=== PATIENT | male | born 1940 | race Caucasian/White ===

== ENCOUNTER 2023-05-03 06:05 | Inpatient (IN) | payer OTHER ==
[2023-05-01 15:25] VITALS: BP 133/78; PULSE 80; RESP 12; TEMP 97.3; O2SAT 97
[~2023-05-03] VITALS: Ht 172.7 cm; Wt 71.0 kg
[2023-05-03] VITALS (19 sets, daily range): BP systolic 107–147; BP diastolic 38–87; PULSE 65–94; RESP 11–19; TEMP 97.3–98; O2SAT 97–100
[~2023-05-03 06:05] MED LIST: ASCO500T11 PO; ASPI1TAB20 PO; CHOL20004 PO; CILO100T PO; CLOP75TA28 PO; FOLI-119 PO; IRONCAP19 OR; KETO2CRE4 EX; LEFL20TA PO; METF-370 PO; METH2.5T PO; METO25TA93 PO; MULT-1018 OR; MULT-688 PO; OMEGCAP28 OR; SIMV40TA18 PO; ZOLP10TA6 PO; [UNRECOGNIZED DRUG - CODE] PO
[2023-05-03] MEDS ORDERED: LIDOCAINE 1% (LOCAL ANESTH.) PF 5ml SDV ONE (06:43)
[2023-05-03] MEDS ORDERED: LIDOCAINE 1% HCL (LOCAL ANESTH.) INJ 20ML MDV ONE (06:44)
[2023-05-03] MEDS ORDERED: BUPIVACAINE 0.5% P/F INJ 10 ML VIAL ONE (06:44)
[2023-05-03] MEDS: HEPARIN SODIUM (PORCINE) 5000 UNITS/ML 1ML VIAL ONE ×2 (06:47→13:00)
[2023-05-03] MEDS ORDERED: LIDOCAINE 2%HCL (LOCAL ANESTH.) INJ 10ml MDV ONE (07:17)
[2023-05-03] MEDS ORDERED: ROCURONIUM 10MG/ML 10ML VIAL IV ONE (07:17)
[2023-05-03] MEDS ORDERED: GELATIN 1 SPONGE SIZE 100 TOP ONE (07:53)
[2023-05-03] MEDS ORDERED: THROMBIN (BOVINE) 5000 UNIT SOL VIAL ONE (07:53)
[2023-05-03] MEDS ORDERED: LIDOCAINE 2% (LOCAL ANESTH.) PF 5ml SDV ONE (07:54)
[2023-05-03] MEDS ORDERED: DexAMETHasone SOD PHOS 10MG/1ML VIAL INJ ONE (07:54)
[2023-05-03] MEDS ORDERED: ONDANSETRON HCL 4 MG/2 ML VIAL ONE (07:54)
[2023-05-03] MEDS ORDERED: GLYCOPYRROLATE 0.2 MG/ML 1ML VIAL ONE (07:54)
[2023-05-03] MEDS ORDERED: PROPOFOL 10 MG/ML 20 ML IV ONE (07:54)
[2023-05-03] MEDS ORDERED: fentaNYL CITRATE 100 MCG/2 ML VL ONE (07:55)
[2023-05-03] MEDS ORDERED: SUGAMMADEX 200mg/2ml Vial (100MG/ML) IV ONE (07:55)
[2023-05-03] MEDS ORDERED: SODIUM CHLORIDE LOCK 20 ML ONE (08:17)
[2023-05-03] MEDS ORDERED: PHENYLEPHRINE HCL 10 MG/ML VL ONE (08:17)
[2023-05-03] MEDS ORDERED: PROTAMINE SULFATE 10 MG/ML 5ML VIAL IV ONE (08:17)
[2023-05-03] MEDS ORDERED: ceFAZolin 1GM/50ML 100 ML IV ONE (08:20)
[2023-05-03] MEDS ORDERED: ePHEDrine SULFATE 50 MG/ML AMP ONE (08:37)
[2023-05-03] MEDS ORDERED: METOPROLOL TARTRATE 1MG/1ML-5ML VIAL IV ONE (09:17)
[2023-05-03] MEDS ORDERED: FLUMAZENIL 0.1 MG/ML INJ 10ML MDV IV PRN (10:45)
[2023-05-03] MEDS ORDERED: HYDROmorphone HCL 2 MG/ML VL/or syr IV PRN (10:45)
[2023-05-03] MEDS ORDERED: ePHEDrine SULFATE 50 MG/ML AMP IV PRN (10:45)
[2023-05-03] MEDS ORDERED: LABETALOL HCL 5 MG/ML 4ML SYRINGE IV PRN (10:45)
[2023-05-03] MEDS ORDERED: NALOXONE HCL 0.4 MG/ML VIAL IV PRN (10:45)
[2023-05-03] MEDS ORDERED: NITROGLYCERIN 0.4 MG SL TAB SL PRN (10:45)
[2023-05-03] MEDS ORDERED: ONDANSETRON HCL 4 MG/2 ML VIAL IV PRN (10:45)
[2023-05-03] MEDS ORDERED: MORPHINE SULFATE INJ 2 MG/ml SYRG IV PRN ×2 (10:45→16:15)
[2023-05-03] MEDS ORDERED: OXYCODONE W/ ACETAMINOPHEN 5/325MG TABLET PO PRN (10:45)
[2023-05-03] MEDS ORDERED: hydrALAZINE HCL 20 MG/ML VL IV PRN (10:45)
[2023-05-03] MEDS ORDERED: fentaNYL CITRATE 100 MCG/2 ML VL IV PRN (10:45)
[2023-05-03] MEDS ORDERED: DEXTROSE (50%) 50ML SYRG IV PRN (18:00)
[2023-05-03] MEDS: InsuLIN REG 1unit/0.01ml Soln (100units/ml) SC SCH (18:37)
[2023-05-03] MEDS: ACCU-CHEK COMFORT CURVE STRIP VI SCH (22:11)
[2023-05-04] VITALS (18 sets, daily range): BP systolic 104–148; BP diastolic 44–95; PULSE 60–89; RESP 10–23; TEMP 97.5–98.2; O2SAT 94–100
[2023-05-04] MEDS ORDERED: ONDANSETRON HCL 4 MG/2 ML VIAL IV PRN (00:15)
[2023-05-04] MEDS: ACETAMINOPHEN 325 MG TAB PO PRN ×2 (00:40→08:13)
[2023-05-04 05:00] LABS: Basophils # (auto) 0 10 ^3/uL (0-0.2); Basophils % (auto) 0.4 % (0.0-2.0); Chloride 109 mmol/L (98-107); Eosinophils # (auto) 0 10 ^3/uL (0-0.8); Eosinophils % (auto) 0.3 % (0.0-7.0); Hematocrit 30.8 % (41.0-53.0); Hemoglobin 10.1 g/dL (13.5-17.5); Lymphocytes # (auto) 1.3 10 ^3/uL (0.4-5.4); Mean Corpuscular Hemoglobin 30.9 pg (28.0-32.0); Mean Corpuscular Hgb Conc. 32.8 g/dL (32.0-36.0); Mean Corpuscular Volume 94.5 fL (80.0-100.0); Monocytes # (auto) 0.8 10 ^3/uL (0-1.3); Monocytes % (auto) 10.5 % (0.0-12.0); Neutrophils # (auto) 5.4 10 ^3/uL (1.6-8.6); Neutrophils % (auto) 71.8 % (37.0-80.0); Potassium 4.1 mmol/L (3.5-5.1); Red Blood Cells 3.26 10^6/uL (4.5-5.90); Red Cell Distribution Width 15.3 % (11.8-14.3); Sodium 140 mmol/L (136-145); White Blood Cell 7.5 10^3/uL (4.4-10.8)
[2023-05-04 05:01] LABS: Anion Gap 8 (5-15); Carbon Dioxide 23 mmol/L (20-30)
[2023-05-04 05:02] LABS: Calcium 8.4 mg/dL (8.7-10.4)
[2023-05-04 05:06] LABS: BUN/Creatinine Ratio 13.7 (10.0-20.0); Blood Urea Nitrogen 10 mg/dL (9-23); Glucose 104 mg/dL (74-106)
[2023-05-04 05:07] LABS: Magnesium 1.7 mg/dL (1.6-2.6)
[2023-05-04] MEDS: InsuLIN REG 1unit/0.01ml Soln (100units/ml) SC SCH ×2 (07:00→11:15)
[2023-05-04] MEDS: ACCU-CHEK COMFORT CURVE STRIP VI SCH ×2 (07:03→11:15)
== END 2023-05-04 16:15 | disposition home or self-care (01) | DRG 39 ==
LOC: SUR 06:05 → TELE 10:42 → ICU CENTRL 14:57
PROVIDERS: ADMIT Surgery Vascular Surgery; ATTEND Surgery Vascular Surgery
PROC: 03UL0KZ Supplement Left Internal Carotid Artery with Nonautologous Tissue Substitute, Open Approach (ICD-10-PCS; 2023-05-03)
PROC: 03CL0ZZ Extirpation of Matter from Left Internal Carotid Artery, Open Approach (ICD-10-PCS; principal; 2023-05-03 08:24)
DX: I65.22 Occlusion and stenosis of left carotid artery (principal); E11.9 Type 2 diabetes mellitus without complications; E78.5 Hyperlipidemia, unspecified; H54.61 Unqualified visual loss, right eye, normal vision left eye; I10 Essential (primary) hypertension; I69.398 Other sequelae of cerebral infarction; I16.0 Hypertensive urgency
CPT/HCPCS: 36415; 80048; 82962; 83735; 85025; 86850; 86900; 86901; 87081; G0378; J0690; J1100; J2001; J2405; J2704; J3490

== ENCOUNTER 2024-05-02 21:34 | Inpatient (IN) | payer OTHER ==
[~2024-05-02] VITALS: Ht 175.3 cm; Wt 72.6 kg
[~2024-05-02 21:34] MED LIST changes: -ASCO500T11 PO; -CILO100T PO; +CILO100T3 PO; -IRONCAP19 OR; -MULT-1018 OR
[2024-05-02 23:50] VITALS: BP 130/59; PULSE 92; RESP 18; TEMP 98.3; O2SAT 95
[2024-05-03] VITALS (10 sets, daily range): BP systolic 100–159; BP diastolic 50–66; PULSE 77–96; RESP 18–20; TEMP 98–98.3; O2SAT 86–96
[2024-05-03] MEDS ORDERED: ACETAMINOPHEN 325 MG TAB PO PRN (00:15)
[2024-05-03] MEDS ORDERED: NITROGLYCERIN 0.4 MG SL TAB SL PRN (00:15)
[2024-05-03] MEDS ORDERED: MORPHINE SULFATE INJ 2 MG/ml SYRG IV PRN (00:15)
[2024-05-03] MEDS ORDERED: HYDROcodone-ACET 5/325MG TAB PO PRN (00:15)
[2024-05-03] MEDS ORDERED: ENOXAPARIN SOD 80 MG/0.8ML SYRINGE SC SCH (00:15)
[2024-05-03] MEDS ORDERED: ONDANSETRON HCL 4 MG/2 ML VIAL IV PRN (00:15)
[2024-05-03] MEDS: SODIUM CHLORIDE 0.9% 1,000 ML IV SCH (01:43)
[2024-05-03 07:00] LABS: INR 1.1 (0.9-1.15); Partial Thromboplastin Time 31.6 SEC (24.5-34.5); Prothrombin Time 11.6 sec (9.3-11.8)
[2024-05-03 07:03] LABS: Chloride 109 mmol/L (98-107); Potassium 3.3 mmol/L (3.5-5.1); Sodium 139 mmol/L (136-145)
[2024-05-03 07:04] LABS: Anion Gap 7 (5-15); Calcium 8.3 mg/dL (8.7-10.4); Carbon Dioxide 23 mmol/L (20-31)
[2024-05-03 07:09] LABS: BUN/Creatinine Ratio 19.5 (10.0-20.0); Blood Urea Nitrogen 15 mg/dL (9-23); Glucose 106 mg/dL (74-106); Triglycerides 103 mg/dL (< 150)
[2024-05-03 07:10] LABS: LDL Cholesterol 44 mg/dL (< 100)
[2024-05-03 07:11] LABS: Cholesterol 105 mg/dL (< 200); HDL Cholesterol 45 mg/dL (40-59)
[2024-05-03 07:12] LABS: Basophils # (auto) 0 10 ^3/uL (0-0.2); Basophils % (auto) 0.3 % (0.0-2.0); Eosinophils # (auto) 0.2 10 ^3/uL (0-0.8); Eosinophils % (auto) 7.3 % (0.0-7.0); Hematocrit 24.1 % (41.0-53.0); Lymphocytes # (auto) 0.6 10 ^3/uL (0.4-5.4); Neutrophils # (auto) 2.1 10 ^3/uL (1.6-8.6); Red Blood Cells 2.48 10^6/uL (4.5-5.90); White Blood Cell 2.9 10^3/uL (4.4-10.8)
[2024-05-03 07:17] LABS: Hemoglobin 8.4 g/dL (13.5-17.5); Lymphocytes % (auto) 20.2 % (10.0-50.0); Mean Corpuscular Hemoglobin 33.9 pg (28.0-32.0); Mean Corpuscular Volume 97.1 fL (80.0-100.0); Monocytes # (auto) 0.1 10 ^3/uL (0-1.3); Neutrophils % (auto) 70.2 % (37.0-80.0); Platelet Count (auto) 65 10^3/uL (140-450); Red Cell Distribution Width 14.8 % (11.8-14.3)
[2024-05-03 07:43] LABS: INR 1.08 (0.9-1.15); Prothrombin Time 11.4 sec (9.3-11.8)
[2024-05-03] MEDS: FAMOTIDINE 20 MG TAB PO SCH (09:24)
[2024-05-03] MEDS ORDERED: FERR1TAB31 PO (11:01)
[2024-05-03] MEDS ORDERED: MULT-733 OR (11:01)
[2024-05-03] MEDS ORDERED: POTA1080 PO (11:01)
[2024-05-03] MEDS ORDERED: ASCO500C49 PO (11:01)
[2024-05-03] MEDS ORDERED: HYDR12.59 PO (11:01)
[2024-05-03] MEDS ORDERED: METF-370 PO (11:01)
[2024-05-03] MEDS ORDERED: METO25TA5 PO (11:01)
[2024-05-03] MEDS: METOPROLOL TARTRATE 25 MG TAB PO ONE (12:10)
[2024-05-03 12:16] LABS: % Iron Saturation 33.6 % (20-55)
[2024-05-03] MEDS: METOPROLOL TARTRATE 25 MG TAB PO SCH (21:57)
[2024-05-04 01:00] VITALS: BP 133/70; PULSE 80; RESP 20; TEMP 98.3; O2SAT 93
[2024-05-04 04:55] VITALS: BP 113/67; PULSE 88; RESP 18; TEMP 98.4; O2SAT 93
[2024-05-04 07:25] LABS: Basophils # (auto) 0 10 ^3/uL (0-0.2); Basophils % (auto) 0.4 % (0.0-2.0); Eosinophils # (auto) 0.3 10 ^3/uL (0-0.8); Monocytes # (auto) 0.1 10 ^3/uL (0-1.3); Neutrophils # (auto) 2.7 10 ^3/uL (1.6-8.6); Platelet Count (auto) 48 10^3/uL (140-450); White Blood Cell 3.9 10^3/uL (4.4-10.8)
[2024-05-04 07:27] LABS: Eosinophils % (auto) 8.2 % (0.0-7.0); Hematocrit 25.8 % (41.0-53.0); Hemoglobin 8.9 g/dL (13.5-17.5); Lymphocytes # (auto) 0.7 10 ^3/uL (0.4-5.4); Lymphocytes % (auto) 18.7 % (10.0-50.0); Mean Corpuscular Hemoglobin 33.6 pg (28.0-32.0); Mean Corpuscular Hgb Conc. 34.7 g/dL (32.0-36.0); Mean Corpuscular Volume 96.9 fL (80.0-100.0); Monocytes % (auto) 3.4 % (0.0-12.0); Neutrophils % (auto) 69.3 % (37.0-80.0); Red Blood Cells 2.66 10^6/uL (4.5-5.90); Red Cell Distribution Width 15.1 % (11.8-14.3)
[2024-05-04 07:34] LABS: Chloride 110 mmol/L (98-107); Potassium 3.8 mmol/L (3.5-5.1); Sodium 140 mmol/L (136-145)
[2024-05-04 07:35] LABS: Anion Gap 6 (5-15); Calcium 8.7 mg/dL (8.7-10.4); Carbon Dioxide 24 mmol/L (20-31)
[2024-05-04 07:40] LABS: BUN/Creatinine Ratio 20.7 (10.0-20.0); Blood Urea Nitrogen 17 mg/dL (9-23); Glucose 110 mg/dL (74-106)
[2024-05-04 07:41] LABS: INR 1.08 (0.9-1.15); Partial Thromboplastin Time 30.4 SEC (24.5-34.5); Prothrombin Time 11.4 sec (9.3-11.8)
[2024-05-04 08:00] VITALS: PULSE 75; PULSE 83; RESP 20; O2SAT 95
[2024-05-04 08:28] VITALS: BP 117/73; PULSE 83; RESP 20; TEMP 97.9; O2SAT 93
[2024-05-04 12:44] VITALS: BP 119/61; PULSE 68; RESP 20; TEMP 97.8; O2SAT 96
[2024-05-04 13:06] VITALS: BP 119/61; PULSE 68; RESP 20; TEMP 97.8; O2SAT 96
== END 2024-05-04 14:10 | disposition home or self-care (01) | DRG 309 ==
LOC: CENTRAL 23:29 → TELE-CENTR 23:56
PROVIDERS: ADMIT Hospitalist; ATTEND Nurse Practitioner Family
DX: I48.91 Unspecified atrial fibrillation (principal); D61.818 Other pancytopenia; E83.42 Hypomagnesemia; E78.5 Hyperlipidemia, unspecified; I10 Essential (primary) hypertension; E11.9 Type 2 diabetes mellitus without complications; Z79.84 Long term (current) use of oral hypoglycemic drugs; Z87.891 Personal history of nicotine dependence; Z86.73 Personal history of transient ischemic attack (TIA), and cerebral infarction without residual deficits
CPT/HCPCS: 36415; 80048; 80061; 82728; 83540; 83550; 83615; 83735; 84484; 85025; 85045; 85610; 85730; 93306; 97163; G0378